=== PATIENT | male | born 1965 | race Caucasian/White ===

== ENCOUNTER 2019-02-10 15:10 | Inpatient (IN) | payer MEDICAID ==
[2019-02-10] MEDS ORDERED: HALOPERIDOL 5 MG TABLET PO PRN (18:15)
[2019-02-10] MEDS ORDERED: ZOLPIDEM TARTRATE 10 MG TABLET PO PRN (18:15)
[2019-02-10 18:21] VITALS: BP 115/76
[2019-02-10] MEDS ORDERED: INFLUENZA VIRUS VACCINE QVS 2019-20 (3YR+)/PF 60 MCG/0.5 ML SYRINGE IM ONE (19:00)
[2019-02-10] MEDS ORDERED: QUET100T PO (20:10)
[2019-02-10] MEDS ORDERED: ESCI10TA PO (20:10)
[2019-02-10] MEDS ORDERED: CLON1TAB13 PO (20:10)
[2019-02-11 07:29] LABS: BASOPHILS % (AUTO) 0.9 % (0.0-2.0); EOSINOPHILS % (AUTO) 2.2 % (1.0-6.0); HEMATOCRIT 41.2 % (41-53); HEMOGLOBIN 14.3 g/dL (13.5-17.5); LYMPHOCYTES # (AUTO) 2.5 K/uL (1.0-4.8); LYMPHOCYTES % (AUTO) 28.5 % (22.0-44.0); MEAN CORPUSCULAR HGB CONC 34.7 G/dL (31.0-37.0); MEAN CORPUSCULAR VOLUME 92 fL (80-100); MONOCYTES # (AUTO) 0.6 K/uL (0.1-1.0); MONOCYTES % (AUTO) 6.5 % (2.0-9.0); NEUTROPHILS # (AUTO) 5.5 K/uL (1.8-7.7); NEUTROPHILS % (AUTO) 61.9 % (40.0-70.0); PLATELET COUNT (AUTO) 449 K/uL (150-450); RED BLOOD CELL COUNT(AUTO) 4.46 MIL/uL (4.50-5.90)
[2019-02-11 08:00] LABS: ALANINE AMINOTRANSFERASE 19 U/L (12-78); ALBUMIN 3.3 g/dL (3.4-5.0); ALKALINE PHOSPHATASE 97 U/L (46-116); ANION GAP 7 mmol/L (8-16); ASPARTATE AMINOTRANSFERASE 16 U/L (15-37); BILIRUBIN,TOTAL 0.3 mg/dL (0.1-1.0); CALCIUM, TOTAL 8.8 mg/dL (8.8-10.5); CARBON DIOXIDE 29 mmol/L (22-29); CHLORIDE 102 mmol/L (98-107); CHOL/HDL RATIO 3.8 (4.2-7.3); CHOLESTEROL 185 mg/dL (131-200); CREATININE 1.17 mg/dL (0.60-1.30); FREE T4 (FREE THYROXINE) 0.83 ng/dL (0.76-1.46); GLOMERULAR FILTR. RATE CALC > 60 mL/min (>60); GLUCOSE,RANDOM 98 mg/dL (70-110); HDL CHOLESTEROL 49 mg/dL (40-60); LDL CHOL (CALC.) 112 mg/dL (0-130); POTASSIUM 4.3 mmol/L (3.5-5.1); SODIUM SERUM 138 mmol/L (136-145); THYROID STIMULATING HORMONE 0.58 uIU/mL (0.36-3.74); TRIGLYCERIDES 118 mg/dL (15-150); UREA NITROGEN, BLOOD 21 mg/dL (7-18)
[2019-02-11 08:11] VITALS: BP 124/66
[2019-02-11] MEDS ORDERED: MAG HYDROX/AL HYDROX/SIMETH ES 30 ML SUSPENSION UDCUP PO PRN (08:15)
[2019-02-11] MEDS ORDERED: MAGNESIUM HYDROXIDE SUSPENSION 30 ML UDCUP PO PRN (08:15)
[2019-02-11] MEDS ORDERED: DOCUSATE SODIUM 100 MG CAPSULE PO PRN (08:15)
[2019-02-11] MEDS ORDERED: ONDANSETRON HCL 4 MG TABLET PO PRN (08:15)
[2019-02-11] MEDS ORDERED: NICOTINE 14 MG/24 HOUR PATCH TD PRN (08:15)
[2019-02-11] MEDS ORDERED: LOPERAMIDE HCL 2 MG CAPSULE PO PRN (08:15)
[2019-02-11] MEDS ORDERED: ACETAMINOPHEN 325 MG TABLET PO PRN (08:15)
[2019-02-11] MEDS ORDERED: GuaiFENesin/D-METHORPHAN [SUGAR-FREE] 200-20MG/10 ML SYRUP UDCUP PO PRN (08:15)
[2019-02-11] MEDS ORDERED: IBUPROFEN 400 MG TABLET PO PRN (08:15)
[2019-02-11] MEDS ORDERED: CloNIDine HCL 0.1 MG TABLET PO PRN (08:15)
[2019-02-11] MEDS ORDERED: PETROLATUM,WHITE 28 GM JELLY TP PRN (08:15)
[2019-02-11] MEDS ORDERED: ALBUTEROL SULFATE HFA 90 MCG/PUFF 8 GM INHALER IH PRN (08:15)
[2019-02-11] MEDS: QUEtiapine FUMARATE 100 MG TABLET PO SCH ×2 (12:59→16:55)
[2019-02-11] MEDS: ESCITALOPRAM OXALATE 10 MG TABLET PO SCH (12:59)
[2019-02-11] MEDS: LORazepam 2 MG TABLET PO PRN (13:07)
[2019-02-11 16:10] VITALS: BP 128/72
[2019-02-12 06:48] VITALS: BP 145/70
[2019-02-12 07:46] LABS: HEMOGLOBIN A1C 5.4 % (4.5-6.2)
[2019-02-12 08:04] LABS: THYROID STIMULATING HORMONE 0.47 uIU/mL (0.36-3.74)
[2019-02-12] MEDS: ESCITALOPRAM OXALATE 10 MG TABLET PO SCH (08:12)
[2019-02-12] MEDS: QUEtiapine FUMARATE 100 MG TABLET PO SCH ×3 (08:12→16:04)
[2019-02-12 08:32] VITALS: BP 120/70
[2019-02-12 16:00] VITALS: BP 111/60
[2019-02-13 02:17] VITALS: BP 110/63
[2019-02-13] MEDS: LORazepam 2 MG TABLET PO PRN ×3 (04:45→16:33)
[2019-02-13] MEDS: QUEtiapine FUMARATE 100 MG TABLET PO SCH ×3 (08:07→16:33)
[2019-02-13] MEDS: ESCITALOPRAM OXALATE 10 MG TABLET PO SCH (08:07)
[2019-02-13 12:51] VITALS: BP 134/85
[2019-02-13 16:01] VITALS: BP 114/68
[2019-02-14 04:52] VITALS: BP 116/68
[2019-02-14] MEDS: LORazepam 2 MG TABLET PO PRN (04:52)
[2019-02-14 08:12] VITALS: BP 125/74
[2019-02-14] MEDS: ESCITALOPRAM OXALATE 10 MG TABLET PO SCH (08:16)
[2019-02-14] MEDS: QUEtiapine FUMARATE 100 MG TABLET PO SCH (08:16)
== END 2019-02-14 10:08 | DRG 750 ==
LOC: B2S 18:32
DX: F25.1 Schizoaffective disorder, depressive type (principal); R45.850 Homicidal ideations; F12.10 Cannabis abuse, uncomplicated; F15.10 Other stimulant abuse, uncomplicated; G44.209 Tension-type headache, unspecified, not intractable; K59.00 Constipation, unspecified; Z59.0 Homelessness; Z79.899 Other long term (current) drug therapy; Z91.5 Personal history of self-harm; Z28.21 Immunization not carried out because of patient refusal
CPT/HCPCS: 83036; 84439; 84443